=== PATIENT | male | born 1940 | race Caucasian/White ===

== ENCOUNTER → 2023-10-31 | Outpatient (CLI) | payer MEDICARE, OTHER ==
[2023-10-31 19:55] LABS: Alanine Aminotransfer (ALT/SGP 19 U/L (12-78); Albumin/Globulin Ratio 1.1 (0.8-1.8); Alk Phos 80 U/L (50-136); Aspartate Aminotrans (AST/SGOT 24 U/L (12-37); Bilirubin, Direct 0.2 mg/dL (0.0-0.3); Bilirubin, Indirect 0.5 mg/dL (0.1-0.7); Bilirubin, Total 0.7 mg/dL (0.1-1.0); C-REACTIVE PROTEIN, EXT RANGE <0.290 mg/dL (0.000-0.300); Ferritin, Serum 150 ng/mL (26-388); Free Thyroxine 0.94 ng/dL (0.70-1.60); Globulin, Blood 3.7 g/dL (2.2-4.0); Iron Serum 62 ug/dL (65-175); Percent Saturation 22.7 % (20.0-50.0); Total Iron Binding Capacity 273 ug/dL (250-450); Total Protein, Blood 7.7 g/dL (6.4-8.2)
== END ==
LOC: LAB SHORT 17:42 → LAB 17:42
PROVIDERS: Internal Medicine
DX: K90.0 Celiac disease (principal); M81.8 Other osteoporosis without current pathological fracture; R63.4 Abnormal weight loss
CPT/HCPCS: 80076; 82306; 82607; 82728; 82746; 83540; 83550; 84439; 84443; 85651; 86140

== ENCOUNTER → 2024-10-15 | Outpatient (CLI) | payer MEDICARE, OTHER ==
[2024-10-15 14:52] LABS: BASOPHILS ABSOLUTE AUTO 0.03 K/mm3 (0.00-0.23); BASOPHILS PERCENT AUTO 0 % (0-2); EOSINOPHILS ABSOLUTE AUTO 0.11 K/mm3 (0.00-0.68); EOSINOPHILS PERCENT AUTO 1 % (0-6); Hematocrit 41.7 % (37.0-53.0); Hemoglobin 13.7 g/dL (13.5-17.5); IMMATURE GRAN ABSOLUTE AUTO 0.02 K/mm3 (0.00-0.10); IMMATURE GRAN PERCENT AUTO 0 % (0-1); LYMPHOCYTES ABSOLUTE AUTO 1.35 K/mm3 (0.84-5.20); LYMPHOCYTES PERCENT AUTO 16 % (21-46); MONOCYTES ABSOLUTE AUTO 0.55 K/mm3 (0.16-1.47); MONOCYTES PERCENT AUTO 6 % (4-13); Mean Corpuscular HGB Conc 32.9 g/dL (31.5-36.5); Mean Corpuscular Volume 96 fL (80-100); NEUTROPHILS ABSOLUTE AUTO 6.60 K/mm3 (1.96-9.15); NEUTROPHILS PERCENT AUTO 76 % (41-73); NRBC ABSOLUTE 0.00 K/mm3 (0.00-0.02); NRBC Auto 0.0 /100 WBC (0.0-0.2); Platelet Count 210 K/mm3 (150-400); RDW Coefficient Variation 11.8 % (11.7-14.2); RDW Standard Deviation 41.6 fL (35.1-46.3)
[2024-10-15 16:05] LABS: Alanine Aminotransfer (ALT/SGP 15.0 U/L (12-78); Albumin, Blood 3.6 g/dL (3.4-5.0); Albumin/Globulin Ratio 1.2 (0.8-1.8); Anion Gap 8.0 mmol/L (3-11); Aspartate Aminotrans (AST/SGOT 19.0 U/L (12-37); Bilirubin, Total 0.6 mg/dL (0.1-1.0); Blood Urea Nitrogen 19.0 mg/dL (8-24); CO2, Blood 30.0 mmol/L (21-32); Calcium, Blood 9.0 mg/dL (8.5-10.1); Chloride, Blood 107.0 mmol/L (98-108); Creatinine, Blood 0.95 mg/dL (0.60-1.20); Globulin, Blood 3.1 g/dL (2.2-4.0); Glucose, Blood 80.0 mg/dL (70-99); Potassium, Blood 4.2 mmol/L (3.5-5.5); Sodium, Blood 141.0 mmol/L (136-145); Total Protein, Blood 6.7 g/dL (6.4-8.2)
== END | disposition home or self-care (01) ==
LOC: LAB 13:37 → LAB SHORT 13:37
PROVIDERS: Internal Medicine
DX: E53.8 Deficiency of other specified B group vitamins (principal); Z79.899 Other long term (current) drug therapy
CPT/HCPCS: 80053; 82607; 82746; 85025

== ENCOUNTER 2024-11-17 00:24 | Inpatient (IN) | payer MEDICARE, OTHER ==
[~2024-11-17] VITALS: Ht 180.3 cm; Wt 64.3 kg
[2024-11-17 00:44] LABS: BASOPHILS ABSOLUTE AUTO 0.04 K/mm3 (0.00-0.23); BASOPHILS PERCENT AUTO 0 % (0-2); EOSINOPHILS ABSOLUTE AUTO 0.09 K/mm3 (0.00-0.68); EOSINOPHILS PERCENT AUTO 1 % (0-6); Hematocrit 43.6 % (37.0-53.0); Hemoglobin 15.0 g/dL (13.5-17.5); IMMATURE GRAN ABSOLUTE AUTO 0.09 K/mm3 (0.00-0.10); IMMATURE GRAN PERCENT AUTO 1 % (0-1); LYMPHOCYTES ABSOLUTE AUTO 3.29 K/mm3 (0.84-5.20); LYMPHOCYTES PERCENT AUTO 21 % (21-46); MONOCYTES ABSOLUTE AUTO 1.06 K/mm3 (0.16-1.47); MONOCYTES PERCENT AUTO 7 % (4-13); Mean Corpuscular HGB Conc 34.4 g/dL (31.5-36.5); Mean Corpuscular Volume 94 fL (80-100); NEUTROPHILS ABSOLUTE AUTO 10.81 K/mm3 (1.96-9.15); NEUTROPHILS PERCENT AUTO 70 % (41-73); NRBC ABSOLUTE 0.00 K/mm3 (0.00-0.02); NRBC Auto 0.0 /100 WBC (0.0-0.2); Platelet Count 264 K/mm3 (150-400); RDW Coefficient Variation 12.0 % (11.7-14.2); RDW Standard Deviation 41.7 fL (35.1-46.3)
[2024-11-17 01:03] LABS: Alanine Aminotransfer (ALT/SGP 30.0 U/L (12-78); Albumin, Blood 3.9 g/dL (3.4-5.0); Albumin/Globulin Ratio 1.0 (0.8-1.8); Anion Gap 10.0 mmol/L (3-11); Aspartate Aminotrans (AST/SGOT 27.0 U/L (12-37); Bilirubin, Total 0.4 mg/dL (0.1-1.0); Blood Urea Nitrogen 26.0 mg/dL (8-24); CO2, Blood 26.0 mmol/L (21-32); Calcium, Blood 8.9 mg/dL (8.5-10.1); Chloride, Blood 104.0 mmol/L (98-108); Creatinine, Blood 1.22 mg/dL (0.60-1.20); Globulin, Blood 3.9 g/dL (2.2-4.0); Glucose, Blood 109.0 mg/dL (70-99); Magnesium, Blood 2.1 mg/dL (1.6-2.4); Potassium, Blood 3.5 mmol/L (3.5-5.5); Sodium, Blood 136.0 mmol/L (136-145); Total Protein, Blood 7.8 g/dL (6.4-8.2)
[2024-11-17] MEDS ORDERED: Ondansetron HCl 2 MG / ML 2ML Vial IV PRN (06:40)
[2024-11-17] MEDS ORDERED: Mag Sulfate 1 GM/D5% 100ML 100 ML IV STA (07:18)
[2024-11-17] MEDS ORDERED: NS 1,000 ML IV ONE (07:20)
[2024-11-17] MEDS ORDERED: FLU VACC TS2025(65UP)/MF59C/PF 45 MCG/0.5 ML SYRINGE IM SCH (07:20)
[2024-11-17] MEDS ORDERED: Enoxaparin 40 MG/0.4 ML SYR SC SCH (09:00)
[2024-11-17 09:28] VITALS: BP 132/73
--- NOTE | 2024-11-17 10:38 | NUR ---
New patient admit from E.R. at 9:00 am. Patient in pleasant, friendly mood. Undress, skin check, Gown and socks applied. Telli collected and applied. I.V. loose so secured. Call light explained and made comfortable. Patient is current NPO. Witness easily able indep ambulation, steady and sure, RIGHT FOREARM wound "From my little dog trying to look out the window in our car." R.N. photograph already. currently wants to rest.
[2024-11-17] MEDS ORDERED: OMEP20ER PO (11:59)
[2024-11-17] MEDS ORDERED: SULFAMETHOXAZO1 EACH PO (12:00)
[2024-11-17] MEDS ORDERED: Prednisone10 MG PO (12:01)
[2024-11-17] MEDS ORDERED: REMERON1510 PO (12:02)
[2024-11-17] MEDS ORDERED: METOPROLOL SUCC25 MG PO (12:03)
[2024-11-17] MEDS ORDERED: LATANOPROST2.5 M3 RIGHTEYE (12:03)
[2024-11-17] MEDS ORDERED: DOCU100 PO (14:01)
[2024-11-17] MEDS ORDERED: METO25ER PO (14:02)
[2024-11-17 17:25] VITALS: BP 132/73
--- NOTE | 2024-11-17 18:46 | NUR ---
SHIFT SUMMARY: PATIENT A+O X4 AND ABLE TO MAKE NEEDS KNOWN THROUGHOUT THIS DAY. PATIENT HAD ECHO, AWAITING RESULTS. PATIENT IN GOOD SPIRITS AND HAS NOT HAD ANY COMPLAINTS OF CHEST DISCOMFORT OR PAIN. LUNGS CLEAR BL, S1 S2 HEARD ON ASCULTATION, NO NOTED BM THIS SHIFT. PATIENT NOTED TO HAVE SUBTLE SKIN TEAR ON R FOREARM. DRESSING PLACED PREVENTATIVE. PLAN TO D/C HOME TOMORROW 11/18/24. WILL CONTINUE TO MONITOR UNTIL ONCOMING RN.
[2024-11-17 20:06] VITALS: BP 138/82
[2024-11-17] MEDS ORDERED: Latanoprost 0.005% Opth Soln 2.5 ML BOTHEYES SCH (21:00)
[2024-11-18 00:02] VITALS: BP 135/77
[2024-11-18 04:14] VITALS: BP 133/75
[2024-11-18 04:47] LABS: BASOPHILS ABSOLUTE AUTO 0.03 K/mm3 (0.00-0.23); BASOPHILS PERCENT AUTO 0 % (0-2); EOSINOPHILS ABSOLUTE AUTO 0.19 K/mm3 (0.00-0.68); EOSINOPHILS PERCENT AUTO 2 % (0-6); Hematocrit 41.8 % (37.0-53.0); Hemoglobin 14.3 g/dL (13.5-17.5); IMMATURE GRAN ABSOLUTE AUTO 0.06 K/mm3 (0.00-0.10); IMMATURE GRAN PERCENT AUTO 1 % (0-1); LYMPHOCYTES ABSOLUTE AUTO 2.00 K/mm3 (0.84-5.20); LYMPHOCYTES PERCENT AUTO 19 % (21-46); MONOCYTES ABSOLUTE AUTO 0.68 K/mm3 (0.16-1.47); MONOCYTES PERCENT AUTO 6 % (4-13); Mean Corpuscular HGB Conc 34.2 g/dL (31.5-36.5); Mean Corpuscular Volume 93 fL (80-100); NEUTROPHILS ABSOLUTE AUTO 7.81 K/mm3 (1.96-9.15); NEUTROPHILS PERCENT AUTO 72 % (41-73); NRBC ABSOLUTE 0.00 K/mm3 (0.00-0.02); NRBC Auto 0.0 /100 WBC (0.0-0.2); Platelet Count 249 K/mm3 (150-400); RDW Coefficient Variation 12.0 % (11.7-14.2); RDW Standard Deviation 41.4 fL (35.1-46.3)
--- NOTE | 2024-11-18 05:34 | NUR ---
SHIFT SUMMARY: PT AOX4 IND IN THE ROOM. CALLS APPROPRIATELY, ABLE TO MAKE NEEDS KNOWN, AND COOPERATIVE IN CARE. PT VERY PLEASANT. TOLERATING MEDICATIONS WELL. NO ACUTE OVERNIGHT EVENTS. DENIES AND CP OR SOB. PT IN BED RESTING, BED IN LOWEST POSITION, CALL LIGHT IN REACH. CONTINUING CARE.
[2024-11-18 06:23] LABS: Alanine Aminotransfer (ALT/SGP 22.0 U/L (12-78); Albumin, Blood 3.4 g/dL (3.4-5.0); Albumin/Globulin Ratio 1.0 (0.8-1.8); Anion Gap 8.0 mmol/L (3-11); Aspartate Aminotrans (AST/SGOT 19.0 U/L (12-37); Bilirubin, Total 0.6 mg/dL (0.1-1.0); Blood Urea Nitrogen 14.0 mg/dL (8-24); CO2, Blood 25.0 mmol/L (21-32); Calcium, Blood 9.2 mg/dL (8.5-10.1); Chloride, Blood 107.0 mmol/L (98-108); Creatinine, Blood 0.96 mg/dL (0.60-1.20); Globulin, Blood 3.4 g/dL (2.2-4.0); Glucose, Blood 99.0 mg/dL (70-99); Potassium, Blood 4.0 mmol/L (3.5-5.5); Sodium, Blood 136.0 mmol/L (136-145); Total Protein, Blood 6.8 g/dL (6.4-8.2)
[2024-11-18 07:34] VITALS: BP 131/80
[2024-11-18] MEDS ORDERED: Trimethoprim/Sulfamethoxazole SS Tab PO SCH (09:00)
[2024-11-18] MEDS ORDERED: Trimethoprim/Sulfamethoxazole DS Tab PO ONE (12:00)
[2024-11-18 17:07] VITALS: BP 127/83
--- NOTE | 2024-11-18 17:12 | NUR ---
SHIFT SUMMARY: PATIENT REMAINS A+O X4 THROUGHOUT THIS DAY AND ABLE TO MAKE NEEDS KNOWN. PATIENT COOPERATIVE WITH NURSING CARE. FIRST PORTION OF STRESS TEST COMPLETED THIS SHIFT. PLAN TO FINISH SECOND PORTION TOMORROW MORNING. PATIENT TO REMAIN NPO AFTER MIDNIGHT. NO TELEMETRY EVENTS DURING THIS DAY. LUNGS CLEAR THROUGHOUT ON ROOM AIR. PATIENT UP IN ROOM AND IND TO BATHROOM. SKIN TEAR ON R FOREARM LOOKS IMPROVED. WILL CONTINUE TO MONITOR SITE FOR INFECTION. PATIENT HAS NO CURRENT NEEDS AT THIS TIME.
[2024-11-18 19:40] VITALS: BP 117/80
[2024-11-18] MEDS ORDERED: Lactobacil 2-S.Thermo-Bifido 1 1 Cap PO SCH (21:00)
[2024-11-19 00:06] VITALS: BP 118/82
[2024-11-19 04:24] VITALS: BP 124/78
--- NOTE | 2024-11-19 06:47 | NUR ---
SHIFT SUMMARY PT ALERT AND ORIENTED TIMES 4 . PT ADMITTED FOR ELEVATED TROPININ LEVELS... PT HX OF PULMONARY FIBROSIS AND CELIAC DISEASE. IS COOPERATIVE WITH CARE AND ABLE TO MAKE NEEDS KNOWN TO STAFF. PT IS INDEPENDENT AROUND ROOM AND TO TOILET. PT IS ON ROOM AIR AND HAS LEFT FOREARM IV SALINE LOCK. PT TAKES MEDICATION WHOLE WITH WATER. PT IS SLIGHTLY HARD OF HEARING. PT APPEARED TO SLEEP ON AND OFF DURING THE NIGHT WITHOUT ISSUES.. CALL LIGHT WITHIN REACH, RAILS TIMES 2, BED IN LOW POSITION.
[2024-11-19 07:14] LABS: BASOPHILS ABSOLUTE AUTO 0.03 K/mm3 (0.00-0.23); BASOPHILS PERCENT AUTO 0 % (0-2); EOSINOPHILS ABSOLUTE AUTO 0.03 K/mm3 (0.00-0.68); EOSINOPHILS PERCENT AUTO 0 % (0-6); Hematocrit 42.1 % (37.0-53.0); Hemoglobin 14.8 g/dL (13.5-17.5); IMMATURE GRAN ABSOLUTE AUTO 0.07 K/mm3 (0.00-0.10); IMMATURE GRAN PERCENT AUTO 0 % (0-1); LYMPHOCYTES ABSOLUTE AUTO 1.52 K/mm3 (0.84-5.20); LYMPHOCYTES PERCENT AUTO 9 % (21-46); MONOCYTES ABSOLUTE AUTO 0.94 K/mm3 (0.16-1.47); MONOCYTES PERCENT AUTO 6 % (4-13); Mean Corpuscular HGB Conc 35.2 g/dL (31.5-36.5); Mean Corpuscular Volume 92 fL (80-100); NEUTROPHILS ABSOLUTE AUTO 13.64 K/mm3 (1.96-9.15); NEUTROPHILS PERCENT AUTO 84 % (41-73); NRBC ABSOLUTE 0.00 K/mm3 (0.00-0.02); NRBC Auto 0.0 /100 WBC (0.0-0.2); Platelet Count 263 K/mm3 (150-400); RDW Coefficient Variation 11.9 % (11.7-14.2); RDW Standard Deviation 39.5 fL (35.1-46.3)
[2024-11-19 07:28] LABS: Anion Gap 8.0 mmol/L (3-11); Blood Urea Nitrogen 23.0 mg/dL (8-24); CO2, Blood 27.0 mmol/L (21-32); Calcium, Blood 9.3 mg/dL (8.5-10.1); Chloride, Blood 104.0 mmol/L (98-108); Creatinine, Blood 1.06 mg/dL (0.60-1.20); Glucose, Blood 109.0 mg/dL (70-99); Potassium, Blood 4.1 mmol/L (3.5-5.5); Sodium, Blood 135.0 mmol/L (136-145)
[2024-11-19] MEDS ORDERED: Aminophylline 250MG / 10ML 10 ML Vial ONE (10:19)
[2024-11-19 11:25] VITALS: BP 144/81
--- NOTE | 2024-11-19 16:18 | NUR ---
SHIFT/DISCHARGE SUMMARY: PATIENT A/OX4, PLEASANT AND COOPERATIVE c CARE. PATIENT DENIES CP/PRESSURE, SOB, N/V AND DIZZINESS. PATIENT ON TELE, SR HR IN 70'S BPM c PVC. PATIENT HAD HIS STRESS TEST DONE TODAY, DR. RAYA SPOKE TO PATIENT AND SPOUSE c RESULT. PATIENT AND SPOUSE VERBALIZES UNDERSTANDING AND ALL QUESTIONS WERE ANSWERED. PATIENT RECEIVED SCHEDULED MEDS PER EMAR. VITAL SIGNS REVIEWED. PIV DC'D. CLIENT PARTNER ORDERED FOR [address] RAYA. PATIENT CLIENT PARTNER PLACE BY [facility] FOR 14 DAYS. PATIENT APPOINTMENT AT [facility] ON 12/03 FOR HEART MONITOR PLACEMENT FOR ANOTHER 14 DAYS c A TOTAL OF 28 DAYS. PER [facility]SPOUSE FOR REMINDERS. PATIENT DISCHARGE HOME c HEART MONITOR. DISCHARGE INSTRUCTIONS PACKET GIVEN TO PATIENT. PATIENT EDUCATED ON ADMITTING DX'S, S/S, TX, F/U c PCP. PATIENT AND SPOUSE VERBALIZES UNDERSTANDING AND NO FURTHER QUESTIONS. PATIENT HAS HAD NO NEW RX ORDER. ALL PERSONAL BELONGINGS WERE SENT c PATIENT. PATIENT LEFT THE ROOM AT 1610 TRANSPORTED VIA BY THIS RN TO PATIENT ENTRANCE.
== END 2024-11-19 16:09 | disposition home or self-care (01) | DRG 282 ==
LOC: ER 00:24 → MEDS 00:25
PROVIDERS: Emergency Medicine; ADMIT Internal Medicine
DX: I47.10 Supraventricular tachycardia, unspecified (principal); I21.A1 Myocardial infarction type 2; I35.0 Nonrheumatic aortic (valve) stenosis; J84.10 Pulmonary fibrosis, unspecified; E03.9 Hypothyroidism, unspecified; E87.6 Hypokalemia; H35.30 Unspecified macular degeneration; H54.62 Unqualified visual loss, left eye, normal vision right eye; Z79.52 Long term (current) use of systemic steroids
CPT/HCPCS: 36415; 71045; 78452; 80048; 80053; 83735; 83880; 84100; 84439; 84443; 84484; 85025; 93005; 93010; 93017; 93246; 93306; 96365; 96366; 96375; 99285-25; A9270; A9500; G0378; J0280; J1650; J2785; J3475; J3480; J7030; J7050; J7512